=== PATIENT | male | born 1975 | race Caucasian/White ===

== ENCOUNTER 2023-08-02 22:32 | Emergency (ER) | payer OTHER, SELFPAY ==
[2023-08-02 22:36] VITALS: BP 159/90
--- NOTE | 2023-08-03 01:54 | ED.GENMED ---
History of Present Illness
<BETITO Li - Last Filed: 08/03/23 05:11>
General
Chief Complaint: Skin Surface Trauma
Source: patient
Time Seen by Provider: 08/03/23 01:48
Travel History
Have you had any contact with someone who has COVID-19?: No
Do you have any symptoms of coronavirus? Fever > 100 degrees, chills, cough, shortness of breath, sore throat, loss of taste or smell, muscle aches, or headache?: No
History of Present Illness
History of Present Illness:
47 year old male with no significant past medical hx who presents with laceration L pinky that occurred just prior to arrival. Pt was working with pruning scissors when he accidentally cut his L pinky. Denies any numbness or tingling to the L hand
and fingers. Denies chest pain, SOB. Tetanus not UTD. He is not on any blood thinners. He is R handed.
Past History
<BETITO Li - Last Filed: 08/03/23 05:11>
Past History
ED Past Medical History: None
ED Past Surgical History: None
Social History
Tobacco: Non-smoker
Review of Systems
<BETITO Li - Last Filed: 08/03/23 05:11>
Review of Systems
Allergies reviewed?: Yes
All Other Systems: ROS reviewed and negative except as documented in HPI and ROS
Constitutional: Reports no symptoms
EENT: Reports no symptoms
Respiratory: Reports no symptoms
Cardiac: Reports no symptoms
ABD/GI: Reports no symptoms
: Reports no symptoms
Musculoskeletal: Reports no symptoms
Skin: Reports other (laceration)
Neurological: Reports no symptoms
Endocrine: Reports no symptoms
Hematologic/Lymphatic: Reports no symptoms
Psychiatric: Reports no symptoms
Phy Exam
<Wong Covarrubias RUST - Last Filed: 08/03/23 05:11>
General Physical Exam
General Presentation: well appearing and no apparent distress
General age: appears stated age
General Skin: warm
General Habitus: normal
General Mental: alert
General Hydration: appears well hydrated
Cardiovascular Exam
Cardiovascular Exam: regular rate/rhythm, no edema, no gallop, no murmur and normal peripheral pulses
Pulmonary Exam
Pulmonary Exam: lungs clear, no respiratory distress, no rales, no crackles, no rhonchi, no wheezing and no cough
Neurological Exam
Neurological Exam: alert, oriented x3 and other (motor and sensation intact to L hand)
Musculoskeletal Exam
Musculoskeletal Exam: neuro vasc intact (fingers of L hand)
Skin Exam
Skin Exam: laceration (3 cm L shaped laceration to the volar aspect of L fifth digit along PIP joint extending medially)
Psychiatric Exam
Psychiatric Exam: normal mood/affect
Course
<Wong Covarrubias RUST - Last Filed: 08/03/23 05:11>
Orders/Labs/Results
Orders:
Orders
08/03/23 02:18
Tetanus/Diphth/Acelpertussis [Adacel] 0.5 ml IM .ONCE ONE
Hand, Left 3 View [CR Hand - Left Min 3 Views] Urgent
Comment:
Reason For Exam: lac with margarita davis
Vital Signs
Initial and Last Documented VS:
Initial Vital Signs
Temp Pulse Resp BP Pulse Ox
97.6 F 76 18 159/90 98
08/02/23 22:36 08/02/23 22:36 08/02/23 22:36 08/02/23 22:36 08/02/23 22:36
Last Documented Vital Signs
Temp Pulse Resp BP Pulse Ox
97.6 F 76 18 159/90 98
08/02/23 22:36 08/02/23 22:36 08/02/23 22:36 08/02/23 22:36 08/02/23 22:36
<Arden Hahn DO - Last Filed: 08/03/23 03:39>
Orders/Labs/Results
Orders:
Orders
08/03/23 02:18
Tetanus/Diphth/Acelpertussis [Adacel] 0.5 ml IM .ONCE ONE
Hand, Left 3 View [CR Hand - Left Min 3 Views] Urgent
Comment:
Reason For Exam: lac with margarita davis
Vital Signs
Initial and Last Documented VS:
Initial Vital Signs
Temp Pulse Resp BP Pulse Ox
97.6 F 76 18 159/90 98
08/02/23 22:36 08/02/23 22:36 08/02/23 22:36 08/02/23 22:36 08/02/23 22:36
Last Documented Vital Signs
Temp Pulse Resp BP Pulse Ox
97.6 F 76 18 159/90 98
08/02/23 22:36 08/02/23 22:36 08/02/23 22:36 08/02/23 22:36 08/02/23 22:36
Procedures
<BETITO Li - Last Filed: 08/03/23 05:11>
Laceration Closure
Left Fifth Finger:
Status of Wound: dirty
Size of Wound in cm: 3
Description of Wound Edges: sharp
Preparation: cleaned with saline
Anesthesia: 1% Lidocaine
Revision/Debridement: routine- no revision
Wound exploration: explored to base- no FB
Type of Closure: single layer closure
Skin Closure Material: 4-0 nylon
Number of sutures: 7
Digital Block
Location of injection for digital block: base of digit
Indiction for Digital Block: surgical repair
Was sensory exam normal prior to exam?: intack pin prick
Type of anesthesia: 1% Lidocaine w/o EPI
Complications: none- good anesthesia
<Arden Hahn DO - Last Filed: 08/03/23 03:39>
Laceration Closure
Left Fifth Finger:
Status of Wound: clean
Size of Wound in cm: 4
Description of Wound Edges: sharp
Preparation: cleaned with soap & water and cleaned with saline
Anesthesia: 1% Lidocaine
Revision/Debridement: routine- no revision
Wound exploration: explored to base- no FB
Type of Closure: single layer closure
Skin Closure Material: 5-0 nylon
Number of sutures: 7
Additional information:
Laceration was sutured by the PA student after my digital block. Procedure was performed with my constant and complete supervision
<BETITO Li - Last Filed: 08/03/23 05:11>
MDM/Problems Addressed
Differential Diagnosis Includes:
laceration to L fifth digit
MDM/Problems Addressed:
47 year old male who presents with laceration to the L pinky finger that occurred just prior to arrival.
<BETITO Li - Last Filed: 08/03/23 05:11>
*Critical Care Note
Total Time (30-74mins, 75-104mins- exclusive of procedures): Not Applicable
ED Attending Note
<BETITO Li - Last Filed: 08/03/23 05:11>
-
Portions of this chart may have been created with voice recognition software.� Occasional wrong word or��sound alike� substitutions may have occurred due to the inherent limitations of voice recognition software.
<Arden Hahn DO - Last Filed: 08/03/23 03:39>
ED Attending Note
Patient seen and examined by attending physician: Yes
I performed the substantive portion of visit, reviewed & personally made and approve the management plan that is documented in note by myself or JOSE.: Yes
ED Attending Note:
Pleasant 47-year-old male that presents with laceration to left pinky. He was using physician's aide's when he cut himself. Last tetanus shot is unknown so he got one today.
Discharge Plan
Departure
Patient Disposition: Home (Routine Discharge)
Patient with high blood pressure during this ER visit?: Yes
Discharge Problem:
Laceration of finger
Instructions: Laceration Repair With Stitches (DC), BLOOD PRESSURE
Prescriptions:
No Action
esomeprazole magnesium [Nexium 24HR] 20 MG capsule,delayed release(DR/EC)
1 tab PO DAILY
sucralfate 1 GRAM tablet
1 g PO AC Qty: 30 0RF
Referrals:
Santiago Sorto MD [Active] - Next open appointment
Blu Swanson MD [Family Provider] -
Activity Restrictions/Additional Instructions:
7 sutures can be removed in 5 to 7 days.
It was a pleasure meeting you and taking part in your care. We hope for your continued healing and wellness.
Please read discharge instructions in their entirety. However, they are for general education and may not describe your exact diagnosis at discharge. Information on your ER visit and medical conditions were discussed with you along with appropriate
follow up information...
If indicated, please take your medications as instructed and indicated on discharge paperwork.
Please schedule a follow up appointment as directed. Call to schedule an appointment
Please return to the emergency department with ANY change in, persisting, or worsening of symptoms. If any of your symptoms do not improve, or persist, or become more severe within 6-12 hours, please return to the emergency department for further
care.
Please return to the emergency department if you develop a headache, neck pain/stiffness, fever greater than 100.4F, chest pain, shortness of breath, persistent nausea, vomiting, slurred speech, difficulty walking, numbness/tingling, weakness, signs
of infection or any other symptoms that are worrisome to you.
If you have any questions or concerns please do not hesitate to call the Hospital at or E-mail me directly at [email or web address]
Interventions
Interventions:
*Nursing Disposition Last Done: 08/03/23 03:53
ED-Skin Assessment Last Done: 08/03/23 02:39
Discharge Date and Time
Discharge Date/Time: 08/03/23 03:53
Print Language: DOMINICAN
[2023-08-03] MEDS: ADACEL 0.5 ML IM (02:26)
== END 2023-08-03 03:53 | disposition home or self-care (01) ==
LOC: EMR 22:32
PROVIDERS: EMERGENCY PHYSICIAN Student in an Organized Health Care Education/Training Program; FAMILY PHYSICIAN Internal Medicine
DX: S61.217A Laceration without foreign body of left little finger without damage to nail, initial encounter (principal); W27.2XXA Contact with scissors, initial encounter; R03.0 Elevated blood-pressure reading, without diagnosis of hypertension; Z23 Encounter for immunization
CPT/HCPCS: 99284; 12002; 64450; 90471; 73130; 90715